=== PATIENT | female | born 1990 | race Hispanic/Latino ===

== ENCOUNTER 2018-04-26 08:26 | Day surgery (SDC) | payer BC ==
[2018-04-23 15:01] VITALS: BMI 25.0
[2018-04-26 09:07] VITALS: O2SAT 100
[2018-04-26] MEDS ORDERED: Propofol 10 mg/ml Inj (20 ML) ONE ×2 (10:35→10:52)
[2018-04-26] MEDS ORDERED: Lactated Ringer's 500 ML IV SCH (10:45)
[2018-04-26 11:13] VITALS: TEMP 98.4
[2018-04-26 11:51] VITALS: BP 111/64; PULSE 54; RESP 19
== END 2018-04-26 12:10 | disposition home or self-care (01) ==
LOC: C.ENDO 08:26
PROVIDERS: ATTEND Internal Medicine Gastroenterology
DX: K64.8 Other hemorrhoids (principal); K59.09 Other constipation
CPT/HCPCS: 45378; 84703; J2704; J7120